=== PATIENT | female | born 1955 | race Caucasian/White ===

== ENCOUNTER 2016-07-24 17:47 | Emergency (ER) | payer OTHER ==
[~2016-07-24] VITALS: Ht 170.2 cm; Wt 60.0 kg
[~2016-07-24 17:47] MED LIST: ALBU.5I NEB; ALBU1AER INH; ASPI81TA82 PO; METO100T9 PO; SYMB160A INH
[2016-07-24 17:55] VITALS: BP 169/104; PULSE 84; RESP 18; TEMP 97.7; O2SAT 92
[2016-07-24] MEDS ORDERED: VENTAER INH (18:30)
[2016-07-24] MEDS ORDERED: LEVOTAB PO (18:30)
[2016-07-24] MEDS ORDERED: MONT10TA4 PO (18:30)
[2016-07-24] MEDS ORDERED: FLUT50SP EACH NARE (18:30)
[2016-07-24] MEDS ORDERED: SYMB160A INH (18:30)
[2016-07-24 18:32] VITALS: BP 166/80; PULSE 86; RESP 16; O2SAT 93
[2016-07-24] MEDS ORDERED: SODIUM CHLORIDE 0.9% FLUSH 5 ML FLUSH IVF PRN (18:45)
[2016-07-24 18:46] VITALS: RESP 22; O2SAT 93
[2016-07-24 19:00] LABS: BASOPHIL % 0.9 % (0.0-2.0); EOSINOPHIL % 0.6 % (0.0-4.0); HEMATOCRIT 44.5 % (35.0-46.0); HEMO FLAGS DIFF FINAL; LYMPH % 21.4 % (9.0-44.0); MEAN CELL VOLUME 98.9 FL (80.0-100.0); MEAN CORPUSCULAR HEMOGLOBIN 33.8 PG (27.0-34.0); MEAN CORPUSCULAR HGB CONC 34.2 % (32.0-36.0); MONO % 10.3 % (0.0-8.0); NEUT % 66.8 % (16.0-70.0); PLATELET COUNT 205 TH/MM3 (150-450); RED CELL DISTRIBUTION WIDTH 13.8 % (11.6-17.2); WHITE BLOOD COUNT 4.5 TH/MM3 (4.0-11.0)
--- NOTE | 2016-07-24 19:01 | PD ---
HPI . Shortness of breath Chief Complaint: Respiratory Symptoms Time Seen by Provider: 18:44 Travel History International Travel<30 days: No Contact w/Intl Traveler<30days: No Traveled to known affect area: No History of Present Illness HPI Patient presents complaining with increasing shortness of breath for the last 2 weeks. She states that it all started when she stopped smoking. She has not been running any fever. She is not able to produce much sputum. She states that she has been taking her usual medications with no relief of her symptoms. She is also complaining with some myalgias. She states that she thought that she was going to while driving here because of her shortness of breath. PFSH Past Medical History Anemia: Yes Arthritis: Yes Asthma: Yes Depression: Yes Cardiovascular Problems: Yes Chest Pain: Yes COPD: Yes Diminished Hearing: No Musculoskeletal: Yes (CHRONIC BACK PAIN) Respiratory: Yes ( EMPYSEMA ) Pneumonia: Yes Tetanus Vaccination: Unknown Influenza Vaccination: Yes Menopausal: Yes : 1 Para: 1 Past Surgical History Tonsillectomy: Yes Family History Family Hypercholesterolemia: Yes Social History Alcohol Use: Yes (2 SHOTS OF BOURBEN NIGHTLY) Tobacco Use: Yes (1.5 PPD QUIT JUN 2016) Substance Use: No Allergies-Medications (Allergen,Severity, Reaction): Coded Allergies: Atorvastatin (Verified Allergy, Severe, 01/10/16) Isosorbide (Verified Allergy, Severe, 01/10/16) Reported Meds & Prescriptions Reported Meds & Active Scripts Active Prednisone (48) 10 mg tab Dose Pack (Prednisone) 10 Mg Dspk 10 Mg PO DIRECTED Reported Ventolin Hfa 18 GM Inh (Albuterol Sulfate) 90 Mcg/Act Aer 2 Puff INH Q4-6H PRN Symbicort Inh (Budesonide/Formoterol Fumarate) 160-4.5 Mcg/Act Aero 1 Puff INH Q12HR Fluticasone Nasal [place] 50 Mcg/Act Naspr 50 Mcg EACH NARE BID 50 mcg/spray Levocetirizine 5 Mg Tab 5 Mg PO DAILY Montelukast (Montelukast Sodium) 10 Mg Tab 10 Mg PO HS Review of Systems Except as stated in HPI: all other systems reviewed are Neg General / Constitutional: No: Fever, Chills Respiratory: Positive: Cough, Shortness of Breath Musculoskeletal: Positive: Myalgias Physical Exam Narrative GENERAL: The patient is able to speak to me in sentences without any apparent dyspnea. SKIN: Warm and dry. HEAD: Atraumatic. Normocephalic. EYES: Pupils equal and round. ENT: No nasal bleeding or discharge. Mucous membranes pink and moist. NECK: Trachea midline. Neck is supple. CARDIOVASCULAR: Regular rate and rhythm. Heart sounds are normal. RESPIRATORY: No accessory muscle use. Lungs sounded clear. Her initial respiratory rate is 18 with an initial room air saturation of 92%. GASTROINTESTINAL: Abdomen soft, non-tender, nondistended. MUSCULOSKELETAL: No obvious deformities. No edema. NEUROLOGICAL: Awake and alert. No obvious cranial nerve deficits. Motor grossly within normal limits. Normal speech. PSYCHIATRIC: Appropriate mood and affect; insight and judgment normal. Data Data Last Documented VS Vital Signs Date Time Temp Pulse Resp B/P Pulse Ox O2 Delivery O2 Flow Rate FiO2 07/24/16 19:27 72 18 153/81 98 Nasal Cannula 2 07/24/16 17:55 97.7 Orders Complete Blood Count With Diff (07/24/16 18:44) Comprehensive Metabolic Panel (07/24/16 18:44) B-Type Natriuretic Peptide (07/24/16 18:44) Ckmb (Isoenzyme) Profile (07/24/16 18:44) Troponin I (07/24/16 18:44) Iv Access Insert/Monitor (07/24/16 18:44) Electrocardiogram (07/24/16 18:44) Ecg Monitoring (07/24/16 18:44) Oximetry (07/24/16 18:44) Oxygen Administration (07/24/16 18:44) Chest, Single Ap (07/24/16 18:44) Sodium Chloride 0.9% Flush (Ns Flush) (07/24/16 18:45) Methylprednisolone So Succ Inj (Solumedr (07/24/16 19:15) Albuterol-Ipratropium Neb (Duoneb Neb) (07/24/16 19:15) CKMB (07/24/16 18:45) CKMB% (07/24/16 18:45) Labs Laboratory Tests Test 07/24/16 18:45 White Blood Count 4.5 TH/MM3 Red Blood Count 4.50 MIL/MM3 Hemoglobin 15.2 GM/DL Hematocrit 44.5 % Mean Corpuscular Volume 98.9 FL Mean Corpuscular Hemoglobin 33.8 PG Mean Corpuscular Hemoglobin 34.2 % Concent Red Cell Distribution Width 13.8 % Platelet Count 205 TH/MM3 Mean Platelet Volume 8.9 FL Neutrophils (%) (Auto) 66.8 % Lymphocytes (%) (Auto) 21.4 % Monocytes (%) (Auto) 10.3 % Eosinophils (%) (Auto) 0.6 % Basophils (%) (Auto) 0.9 % Neutrophils # (Auto) 3.0 TH/MM3 Lymphocytes # (Auto) 1.0 TH/MM3 Monocytes # (Auto) 0.5 TH/MM3 Eosinophils # (Auto) 0.0 TH/MM3 Basophils # (Auto) 0.0 TH/MM3 CBC Comment DIFF FINAL Differential Comment Sodium Level 141 MEQ/L Potassium Level 4.0 MEQ/L Chloride Level 108 MEQ/L Carbon Dioxide Level 23.3 MEQ/L Anion Gap 10 MEQ/L Blood Urea Nitrogen 13 MG/DL Creatinine 0.76 MG/DL Estimat Glomerular Filtration 77 ML/MIN Rate Random Glucose 93 MG/DL Calcium Level 8.9 MG/DL Total Bilirubin 0.5 MG/DL Aspartate Amino Transf 29 U/L (AST/SGOT) Alanine Aminotransferase 23 U/L (ALT/SGPT) Alkaline Phosphatase 87 U/L Total Creatine Kinase 106 U/L Creatine Kinase MB 1.7 NG/ML Troponin I LESS THAN 0.02 NG/ML Total Protein 6.6 GM/DL Albumin 3.6 GM/DL MDM Medical Decision Making Medical Screen Exam Complete: Yes Emergency Medical Condition: Yes Medical Record Reviewed: Yes (records reviewed. She had PFTs done in December 2014 which showed moderately severe disease which responded nicely to bronchodilators.) Interpretation(s) EKG shows a sinus rhythm with no ST segment elevation or depression. Differential Diagnosis Differential diagnosis of dyspnea includes but is not limited to congestive heart failure, pneumonia, wheezing, pneumothorax, pulmonary embolism Narrative Course Patient presents complaining with a two-week history of increasing shortness of breath. She states it all started after she stopped smoking. CBC & BMP Diagram 07/24/16 18:45 Last Impressions Chest X-Ray 07/24/16 1193 Signed Impressions: Service Date/Time: Sunday, July 24, 2016 19:10 - CONCLUSION: Hyperinflation. Edwar García MD The chest x-ray was independently viewed by me. She has been treated here with steroids and stacked nebs. She states that she is ready to go home and walk her dog. Diagnosis Primary Impression: Dyspnea Qualified Code: R06.00 - Dyspnea, unspecified type Additional Impression: COPD (chronic obstructive pulmonary disease) Qualified Code: J44.1 - Chronic obstructive pulmonary disease with acute exacerbation Patient Instructions: COPD (Chronic Obstructive Pulmonary Disease) (DC), General Instructions Med/Other Pt SpecificInfo: Prescription(s) given Scripts Prednisone (48) 10 mg tab Dose Pack 10 Mg Dspk10 Mg PO DIRECTED #1 DSPK Ref 0 Prov:Shobha Olguin MD 07/24/16 Disposition: 01 DISCHARGE HOME Condition: Stable Shobha Olguin MD Jul 24, 2016 19:01
[2016-07-24] MEDS ORDERED: methylPREDNISolone SOD SUCC 125 MG/2 ML VIAL IVP ONE (19:15)
[2016-07-24] MEDS: RESP: ALBUTEROL 2.5 MG/IPRATROPIUM 0.5 MG NEB (SCH) INH (19:25)
[2016-07-24 19:27] VITALS: BP 153/81; PULSE 72; RESP 18; O2SAT 98
--- NOTE | 2016-07-24 19:28 | RADRPT ---
EXAM DATE/TIME: 07/24/2016 19:10 [facility] COMPARISON: CHEST SINGLE AP, June 09, 2013, 13:50. INDICATIONS : Shortness of breath for the past two weeks. Patient recently quit smoking. MEDICAL HISTORY : Chronic obstructive pulmonary disease. SURGICAL HISTORY : None. ENCOUNTER: Initial ACUITY: 2 weeks PAIN SCORE: 0/10 LOCATION: Bilateral chest FINDINGS: Hyperinflation. Clear lungs. Heart size normal. Osseous structures are intact. CONCLUSION: Hyperinflation. Edwar García MD on July 24, 2016 at 19:26 Board Certified Radiologist. This report was verified electronically.
[2016-07-24 19:49] LABS: ALKALINE PHOSPHATASE 87 U/L (45-117); ALT (GPT) 23 U/L (10-53); ANION GAP 10 MEQ/L (5-15); AST (GOT) 29 U/L (15-37); BICARBONATE 23.3 MEQ/L (21.0-32.0); BLOOD UREA NITROGEN 13 MG/DL (7-18); CHLORIDE 108 MEQ/L (98-107); CREATINE KINASE 106 U/L (26-192); GLOMERULAR FILTRATION RATE 77 ML/MIN (>89); SODIUM (NA) 141 MEQ/L (136-145); TOTAL BILIRUBIN ADULT 0.5 MG/DL (0.2-1.0)
[2016-07-24] MEDS ORDERED: PRED10PA2 PO (19:53)
[2016-07-24 20:01] LABS: CKMB 1.7 NG/ML (0.5-3.6)
[2016-07-24 20:40] VITALS: BP 152/81
--- NOTE | 2016-07-25 16:06 | EKG ---
Date Performed: 07/24/2016 Time Performed: 19:36:05 PTAGE: 60 years EKG: Sinus rhythm POSSIBLE LEFT ATRIAL ENLARGEMENT POSSIBLE RIGHT VENTRICULAR CONDUCTION DELAY SEPTAL MYOCARDIAL INFAR CTION CONSIDER ANTEROSEPTAL MO - AGE UNDETERMINATE ABNORMAL ECG PREVIOUS TRACING : 12/04/2014 11.54 DOCTOR: Tico Alvarez Interpretating Date/Time 07/25/2016 16:07:03
== END 2016-07-24 20:45 | disposition home or self-care (01) ==
LOC: NEPA 17:47
DX: J44.1 Chronic obstructive pulmonary disease with (acute) exacerbation (principal); J45.909 Unspecified asthma, uncomplicated; D64.9 Anemia, unspecified; M19.90 Unspecified osteoarthritis, unspecified site; Z87.891 Personal history of nicotine dependence
CPT/HCPCS: 71010; 80053; 82550; 82552; 83880; 84484; 85025; 93005; 94640; 94664; 96374; 99285; J2930

== ENCOUNTER → 2016-08-26 | Outpatient (CLI) | payer OTHER ==
[~2016-08-26] MED LIST changes: -ALBU.5I NEB; -ALBU1AER INH; +ASPI81CH37 CHEW; -ASPI81TA82 PO; +AZEL1SPR2 EACH NARE; +DICL75TA PO; +FLUT50SP EACH NARE; +GLUC1CAP14 PO; +IPRASOL INH; +LEVOTAB PO; -METO100T9 PO; +MISC1TAB PO; +MONT10TA4 PO; +MULT-135 PO; +NIAC500T18 PO; +POTA595T PO; +PRED10PA2 PO; +VENTAER INH; +VITA400C5 PO
[2016-08-26 10:56] LABS: BLOOD GAS BASE EXCESS -0.3 mmol/L (-2-2); BLOOD GAS CARBOXYHEMOGLOBIN 1.8 % (0-4); BLOOD GAS HCO3 23 mmol/L (22-26); BLOOD GAS METHEMOGLOBIN 0.8 % (0-2); BLOOD GAS O2 HGB SATURATION 96 % (90-100); BLOOD GAS OXYGEN CONTENT 19.6 Vol % (12.0-20.0); BLOOD GAS PCO2 34 mmHg (38-42); BLOOD GAS PO2 102 mmHg (61-120); BLOOD GAS TOTAL HGB 14.5 G/DL (12.0-16.0); CRITICAL VALUE NO; OXYGEN DEVICE ROOM AIR
[2016-08-26 10:57] LABS: DRAW SITE RT RADIAL; FIO2 21 %; NUMBER OF ARTERIAL PUNCTURES 1; STAT NO; ULNAR PULSE PRESENT
--- NOTE | 2016-08-27 08:47 | RSPPFT ---
DATE OF PROCEDURE: 08/26/16 COMMENTS: Spirometry shows FVC of 2.6 at 73% of predicted, FEV1 of 1.8 at 65%, FEV1/FVC ratio is decreased. Flow is decreased at FEF 25-75. There is no significant response after bronchodilator treatment. Lung volumes show residual volume is increased. TLC is normal. Diffusion capacity is severely decreased. Flow volume loop indicates an obstructive pattern. Room air arterial blood gases show pH of 7.46, PCO2 of 34, PO2 of 102 and BiCarb of 23. 6-minute walk test shows no hypoxia. IMPRESSION: 1. Mild obstructive lung disease. 2. No response after bronchodilator treatment. 3. Lung volumes show hyperinflation. 4. Severe loss in diffusion capacity. 5. Blood gases show normal oxygenation. 6. No de-saturation noted on 6-minute walk test.
--- NOTE | 2016-09-03 08:47 | RSPPFT ---
DATE OF PROCEDURE: 09/01/16 COMMENTS: Spirometry shows FVC of 2.6 at 78% of predicted, FEV1 of 1.82 at 73%, FEV1/FVC ratio is decreased. Flow is decreased at FEF 25, FEF 50, FEF 75 and FEF 25-75. There is no response after bronchodilator treatment. Lung volumes show residual volume is increased. TLC is normal. Diffusion capacity is decreased. Flow volume loops indicate an obstructive pattern. IMPRESSION: 1. Mild obstructive lung disease. 2. No response after bronchodilator treatment. 3. Lung volumes show hyperinflation. 4. Diffusion capacity is moderately decreased.
== END ==
LOC: PHRSP 10:28
PROVIDERS: ATTEND Family Medicine
DX: J44.9 Chronic obstructive pulmonary disease, unspecified (principal)
CPT/HCPCS: 36600; 82805; 94060; 94620; 94726; 94729

== ENCOUNTER 2016-09-28 11:46 | Emergency (ER) | payer OTHER ==
[~2016-09-28] VITALS: Ht 170.2 cm; Wt 57.0 kg
[~2016-09-28 11:46] MED LIST changes: -ASPI81CH37 CHEW; -AZEL1SPR2 EACH NARE; -DICL75TA PO; -GLUC1CAP14 PO; -IPRASOL INH; -MISC1TAB PO; -MULT-135 PO; -NIAC500T18 PO; -POTA595T PO; -VITA400C5 PO
[2016-09-28 11:51] VITALS: BP 139/84; PULSE 80; RESP 18; TEMP 97.4; O2SAT 94
--- NOTE | 2016-09-28 12:17 | PD ---
HPI Chief Complaint: Skin Problem Time Seen by Provider: 12:02 Travel History International Travel<30 days: No Contact w/Intl Traveler<30days: No Traveled to known affect area: No History of Present Illness HPI 60-year-old female presents the emergency department with ongoing nonhealing wound to the right lower anterior vides. Patient states it started approximately 2 and half weeks ago after her dog ran by and cut her leg with his dog tags. Patient has been seen by her primary care physician and given Bactroban and oral Bactrim, but the patient feels it is not healing appropriately. She is complaining of pain in the area. There is no warmth or drainage. There is no fever chills or other symptoms. No history of MRSA. She takes no medications. She is allergic to Toradol Isosorbide. PFSH Past Medical History Anemia: Yes Arthritis: Yes Asthma: Yes Depression: Yes Cardiovascular Problems: Yes (HIGH CHOLESTEROL) Chest Pain: Yes COPD: Yes Diminished Hearing: No Musculoskeletal: Yes (CHRONIC BACK PAIN) Respiratory: Yes (COPD) Pneumonia: Yes ?: Not Menopausal: Yes : 1 Para: 1 Past Surgical History Tonsillectomy: Yes Family History Family Hypercholesterolemia: Yes Social History Alcohol Use: Yes (2 SHOTS OF BOURBEN NIGHTLY) Tobacco Use: Yes (1.5 PPD QUIT JUN 2016) Substance Use: No Allergies-Medications (Allergen,Severity, Reaction): Coded Allergies: Atorvastatin (Verified Allergy, Severe, 09/28/16) Isosorbide (Verified Allergy, Severe, 09/28/16) Reported Meds & Prescriptions Reported Meds & Active Scripts Active Prednisone (48) 10 mg tab Dose Pack (Prednisone) 10 Mg Dspk 10 Mg PO DIRECTED Reported Ventolin Hfa 18 GM Inh (Albuterol Sulfate) 90 Mcg/Act Aer 2 Puff INH Q4-6H PRN Symbicort Inh (Budesonide/Formoterol Fumarate) 160-4.5 Mcg/Act Aero 1 Puff INH Q12HR Fluticasone Nasal [place] 50 Mcg/Act Naspr 50 Mcg EACH NARE BID 50 mcg/spray Levocetirizine 5 Mg Tab 5 Mg PO DAILY Montelukast (Montelukast Sodium) 10 Mg Tab 10 Mg PO HS Physical Exam Narrative GENERAL: Patient is somewhat anxious but otherwise no acute distress. SKIN: Warm and dry. Normal color. Normal turgor. Patient has a scabbed nickel sized lesion to the right lower anterior vides. There is no significant warmth, or signs of cellulitis currently. It appears to be granulating well along the edges. HEAD: Atraumatic. Normocephalic. EYES: Pupils equal and round. No scleral icterus. No injection or drainage. ENT: No nasal bleeding or discharge. Mucous membranes pink and moist. Pharynx is clear. NECK: Trachea midline. Neck supple nontender. CARDIOVASCULAR: Regular rate and rhythm. RESPIRATORY: No accessory muscle use. Clear to auscultation. Breath sounds equal bilaterally. MUSCULOSKELETAL: Extremities without clubbing, cyanosis, or edema. No obvious deformities. NEUROLOGICAL: Awake and alert. No obvious cranial nerve deficits. Motor grossly within normal limits. Five out of 5 muscle strength in the arms and legs. Normal speech. PSYCHIATRIC: Appropriate mood and affect; insight and judgment normal. Data Data Last Documented VS Vital Signs Date Time Temp Pulse Resp B/P Pulse Ox O2 Delivery O2 Flow Rate FiO2 09/28/16 11:51 97.4 80 18 139/84 94 MDM Medical Decision Making Medical Screen Exam Complete: Yes Emergency Medical Condition: Yes Differential Diagnosis Nonhealing wound to the right lower leg. Eschar. Possible vascular deficiency. Narrative Course Patient is medically stable at time of exam. I do not feel antibiotics are necessary at this time based on my exam. I feel the patient would benefit from wet-to-dry dressings which are demonstrated to the patient by myself. Patient is to change the dressing twice daily as instructed and follow up if symptoms do not continue to improve. Diagnosis Primary Impression: Non-healing skin lesion Referrals: Primary Care Physician Patient Instructions: Chronic Wound Care (ED), General Instructions Additional Instructions: I do not feel antibiotics are necessary at this time based on my exam. I feel the patient would benefit from wet-to-dry dressings which are demonstrated to the patient by myself. Patient is to change the dressing twice daily as instructed and follow up if symptoms do not continue to improve. Med/Other Pt SpecificInfo: Med Stopped, No Meds Exist/No RX given, Wound Care Disposition: 01 DISCHARGE HOME Condition: Stable Vish Long September 28, 2016 12:17
[2016-09-28] MEDS ORDERED: IPRASOL INH (12:21)
[2016-09-28] MEDS ORDERED: SYMB160A INH (12:21)
[2016-09-28] MEDS ORDERED: GLUC1CAP14 PO (12:21)
[2016-09-28] MEDS ORDERED: DICL75TA PO (12:21)
[2016-09-28] MEDS ORDERED: VENTAER INH (12:21)
[2016-09-28] MEDS ORDERED: NIAC500T18 PO (12:21)
[2016-09-28] MEDS ORDERED: ASPI81CH37 CHEW (12:21)
[2016-09-28] MEDS ORDERED: VITA400C5 PO (12:21)
[2016-09-28] MEDS ORDERED: POTA595T PO (12:21)
[2016-09-28] MEDS ORDERED: MISC1TAB PO (12:21)
[2016-09-28] MEDS ORDERED: AZEL1SPR2 EACH NARE (12:21)
[2016-09-28] MEDS ORDERED: FLUT50SP EACH NARE (12:21)
[2016-09-28] MEDS ORDERED: MULT-135 PO (12:21)
== END 2016-09-28 12:25 | disposition home or self-care (01) ==
LOC: PHEFT 11:46
DX: L98.9 Disorder of the skin and subcutaneous tissue, unspecified (principal); J45.909 Unspecified asthma, uncomplicated; D64.9 Anemia, unspecified; E78.00 Pure hypercholesterolemia, unspecified; J44.9 Chronic obstructive pulmonary disease, unspecified; F17.210 Nicotine dependence, cigarettes, uncomplicated
CPT/HCPCS: 99282